=== PATIENT | male | born 1995 | race Two or more races ===

== ENCOUNTER 2018-04-29 17:43 | Emergency (ER) | payer MEDICAID ==
[~2018-04-29] VITALS: Ht 157.5 cm; Wt 56.7 kg
--- NOTE | 2018-04-29 18:50 | Emergency Room Report ---
History of Present Illness General Chief Complaint: Medical Clearance Source: EMS Present Illness HPI patient is a 24-year-old male brought in by [facility] in handcuffs as he was trying to jump off the fence 1 hour ago he had the back of his head to the ground. Patient has a laceration on the occipital and parietal region. Denies headache mentioning he does not feel any pain on the side of the laceration. Denies loss of consciousness, dizziness, vision changes. Denies chest pain, shortness of breath, palpitation, alcohol abuse, drug use and all other associated symptoms. Allergies: Coded Allergies: No Known Allergies (Unverified , 04/29/18) Patient History Immunizations: UTD Reviewed Nursing Documentation: PMH: Agreed; PSxH: Agreed Nursing Documentation-PMH Past Medical History: No Stated History Review of Systems All Other Systems: negative except mentioned in HPI Physical Exam Vital Signs Date Time Temp Pulse Resp B/P (MAP) Pulse Ox O2 Delivery O2 Flow Rate FiO2 04/29/18 17:34 98.1 90 16 135/89 98 Room Air 98.1 Sp02 EP Interpretation: reviewed, normal General Appearance: normal inspection, well appearing, no apparent distress, alert, GCS 15, non-toxic Head: other - 2 cm laceration on the parietal occipital region Eyes: bilateral eye normal inspection, bilateral eye PERRL ENT: normal ENT inspection, hearing grossly normal, normal pharynx, no angioedema, normal voice Neck: normal inspection, full range of motion, supple, no meningismus, no bony tend Respiratory: normal inspection, lungs clear, no rhonchi, no retraction, no wheezing Cardiovascular #1: normal inspection, no edema, no JVD, no murmur Gastrointestinal: normal inspection, soft Rectal: deferred Genitourinary: deferred Musculoskeletal: normal inspection, back normal Neurologic: normal inspection, alert, oriented x3, responsive, motor strength/ tone normal, cerebellar normal, normal gait, speech normal Psychiatric: normal inspection, judgement/insight normal, memory normal Skin: normal inspection, normal color, no rash, warm/dry Lymphatic: normal inspection, no adenopathy, axilla node tender (R) Procedures Laceration/Wound Repair Laceration/Wound Repair : Consent: Verbal Wound Location: head Wound's Depth, Shape: superficial Wound Explored: contaminated Betadine Prep?: No Wound Repaired With: kumar Number of Sutures: 2 Layer Closure?: Yes Sterile Dressing Applied?: Yes Splint Applied?: No Patient Tolerated: Well Complications: None Medical Decision Making PA Attestation all diagnosis and treatment plans were reviewed and discussed with my supervising physician Dr. Bob Diagnostic Impression: Primary Impression: Laceration of head ER Course patient is a 24-year-old male brought in by [facility] in handcuffs as he was trying to jump off the fence 1 hour ago he had the back of his head to the ground. Patient has a laceration on the occipital and parietal region. Denies headache mentioning he does not feel any pain on the side of the laceration. Denies loss of consciousness, dizziness, vision changes. Denies chest pain, shortness of breath, palpitation, alcohol abuse, drug use and all other associated symptoms. Ddx considered but are not limited to cerebral hematoma, superficial laceration of the scalp Vital signs: are WNL, pt. is afebrile H&PE are most consistent witsuperficial laceration of scalp ORDERS: head CT no contrast, naproxen ED INTERVENTIONS: head CT noncontrast DISCHARGE: At this time pt. is stable for d/c to home. Will provide printed patient care instructions, and any necessary prescriptions. Care plan and follow up instructions have been discussed with the patient prior to discharge. kumar to be removed in 7-10 days if dizziness loss of consciousness headache nausea vomiting return to the emergency room CT/MRI/US Diagnostic Results CT/MRI/US Diagnostic Results : Imaging Test Ordered: head CT noncontrast Impression left parietal scalp hematoma no skull fracture or acute intracranial abnormality Last Vital Signs Date Time Temp Pulse Resp B/P (MAP) Pulse Ox O2 Delivery O2 Flow Rate FiO2 04/29/18 17:34 98.1 90 16 135/89 98 Room Air 98.1 Condition: Stable Scripts Naproxen* (NAPROXEN*) 500 Mg Tablet 500 MG ORAL TWICE A DAY, #20 TAB Prov: Lea Moreira 04/29/18 Patient Instructions: Head Injury, Adult, [id number], Laceration Care, Adult Additional Instructions: Take medication as directed if dizziness, loss of consciousness, vision changes , return to the emergency room fluid further assessment. kumar to be removed in 7-10 days Lea Moreira Apr 29, 2018 18:50
[2018-04-29] MEDS ORDERED: NAPROXEN500 M2 ORAL (19:09)
[2018-04-29] MEDS ORDERED: Bacitracin Oint UD TOPIC ONE (19:15)
[2018-04-29] MEDS ORDERED: Tetanus/Diptheria/Pertussis Vaccine 0.5ml Syr IM ONE (19:15)
[2018-04-29 19:28] VITALS: BP 135/89
[2018-04-29 19:30] VITALS: BP 135/89
--- NOTE | 2018-04-30 08:07 | Diagnostic Imaging Report ---
Reason For Exam: Pain, TRAUMA Technique: Continuous helical CT scanning of the head was performed without intravenous contrast material. Axial and coronal 5 mm sections were generated. Radiation dose was minimized using automated exposure control Dose: Total Dose Length Product - DLP 1375.[address] Dose Index - CTDIvol(s) 70.38 mGy. Comparison: None FINDINGS: There is no acute intracranial hemorrhage, mass effect, midline shift or evidence of cortical edema. Palafox-white differentiation appears preserved. The ventricles, cisterns and sulci are normal for age. Mastoid air cells are clear. There is paranasal sinus disease with mucosal thickening/partial opacification most pronounced in the left maxillary sinus, right sphenoid sinus and some bilateral ethmoid air cells. There is left posterior parietal soft tissue swelling/small scalp hematoma. There is subtle skin irregularity in the region concerning for laceration. Correlation with physical exam recommended. There is no associated depressed calvarial fracture. IMPRESSION: No evidence of acute intracranial hemorrhage, mass effect or midline shift. Left posterior parietal soft tissue swelling/scalp hematoma. Associated skin irregularity raising question for laceration. Correlate with physical exam. No depressed skull fracture. Paranasal sinus disease. The CT scanner at [facility] is accredited by the [employer] and the scans are performed using protocols designed to limit radiation exposure to as low as reasonably achievable to attain images of sufficient resolution adequate for diagnostic evaluation. Within normal
== END 2018-04-29 19:34 ==
LOC: EDBD 17:43 → EMR 19:22
DX: S01.01XA Laceration without foreign body of scalp, initial encounter (principal); Y93.39 Activity, other involving climbing, rappelling and jumping off; Y92.89 Other specified places as the place of occurrence of the external cause; Z23 Encounter for immunization
CPT/HCPCS: 12031; 70450; 90471; 90715; 99284; Z7502